=== PATIENT | female | born 1935 | race Caucasian/White ===

== ENCOUNTER 2017-05-30 16:53 | Outpatient (CLI) | payer MEDICARE ==
[~2017-05-30 16:53] MED LIST: Gadobenate Dimeglumine 529 MG/1 ML (20ML VIAL) ONE
--- NOTE | 2017-05-31 09:57 | MRI ---
MRI LUMBAR SPINE WITH AND WITHOUT CONTRAST: HISTORY: Lumbar radiculopathy. COMPARISON: None. TECHNIQUE: Lumbar spine MRI is performed with and without intravenous Gadolinium administration. Multisequentia l, multiplanar imaging performed. FINDINGS: There is appropriate T1 marrow signal intensity of the lumbar vertebral Lumbar spine vertebral body height is maintained. There is no fracture. No significant STIR hyperintensity to suggest vertebral body edema due to fracture. No MRI evidence of ligamentous injury. There is evidence of type I and type II Modic changes throughout the lumbar spine. Three millimeters of retrolisthesis of L2 upon L 3, approximately 7 mm anterolisthesis of L5 upon S1. Conus medullaris terminates at the superior asp ect of L2. Symmetric signal intensity of the psoas muscles. Nonspecific T2 hyperintensity just beyond the left renal pelvis. On the post contrast images, there is no abnormal enhancement of the vertebral bodies. There is no a bnormal enhancement within the thecal sac including the cauda equina and conus medullaris. T12-L1: No significant central canal stenosis or foraminal narrowing. L1-L2: Mild loss of disk space height. Generalized disk bulge, ligamentum flavum thickening, and fa cet hypertrophy result in mild central canal stenosis. Mild right and left foraminal narrowing. L2-L3: Desiccation with moderate loss of disk space height. Generalized disk bulge, ligamentum flav um thickening, and facet hypertrophy result in moderate central canal stenosis. Moderate right and l eft foraminal narrowing due to disk material and posterior element hypertrophy. L3-L4: Desiccation with moderate loss of disk space height. Generalized disk bulge, ligamentum flav um thickening, and facet hypertrophy result in moderate central canal stenosis. Moderate right and m ild left foraminal narrowing due to degenerative change of the posterior elements and disk material. L4-L5: Severe loss of disk space height. Generalized disk bulge, ligamentum flavum thickening, and facet hypertrophy result in moderate to severe central canal stenosis. Moderate right and mild left foraminal narrowing. L5-S1: Severe loss of disk space height. Central disk bulge. No high-grade central canal stenosis. Neural foramina are mild to moderately narrowed bilaterally. 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 IMPRESSION: 1. No abnormal enhancement. 2. Degenerative changes of the lumbar spine as above. There is significant central canal stenosis a nd foraminal narrowing at multiple levels. POS: [facility]
== END 2017-05-30 16:54 | disposition home or self-care (01) ==
LOC: MRI 16:53
PROVIDERS: ATTEND Family Medicine
DX: M47.26 Other spondylosis with radiculopathy, lumbar region (principal); M48.061 Spinal stenosis, lumbar region without neurogenic claudication; M99.83 Other biomechanical lesions of lumbar region
CPT/HCPCS: 72158; A9579